=== PATIENT | female | born 1975 | race Caucasian/White ===

== ENCOUNTER 2020-03-09 15:42 | Emergency (ER) | payer OTHER ==
[~2020-03-09] VITALS: Ht 154.9 cm; Wt 95.7 kg
[2020-03-09] MEDS ORDERED: IBUPROFEN 600 MG TAB PO STA (16:05)
[2020-03-09] MEDS ORDERED: TRAMADOL HCL 50 MG TAB PO ONE (16:15)
--- NOTE | 2020-03-09 16:42 | Diagnostic Imaging Report ---
EXAMINATION: ELBOW RIGHT COMPLETE INDICATION: Elbow pain COMPARISON: None FINDINGS: No acute fracture or dislocation. Alignment is anatomic. No elbow joint effusion. Soft tissues appear unremarkable. IMPRESSION: No acute osseous injury. Signed by: Jered Nguyen MD on 03/09/2020 4:39 PM
[2020-03-09 17:43] VITALS: BP 127/88
--- NOTE | 2020-03-09 17:44 | Emergency Department Note ---
History of Present Illnes History of Present Illness Chief Complaint: General Medicine Complaints History of Present Illness This is a 44 year old female PATIENT IN FROM HOME WITH COMPLAINTS OF RIGHT ARM/ELBOW PAIN STARTING THIS MORNING; STATES SHE IS HAVING A HARD TIME GRIPPING THINGS WITH HER RIGHT HAND. RATES PAIN 04/16. 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 Any updates have been documented here. Past Medical History Recent Fever: No Clinical Suspicion of Infectio: No New/Unexplained Change in Ment: No Past Medical History: None Past Surgical History: Appendectomy, Tubal Ligation, Other Surgery: RIGHT ARM SURGERY/ TENDON REPAIR Social History Smoking Cessation: Never Smoker Counseling Performed: No Alcohol Use: Occasional Any Illegal Drug Use: No TB Exposure/Symptoms: No Physically hurt or threatened: No Family History Family history of heart diseas: No Other Last Tetanus: UTD Any Pre-Existing Lines (PICC,: No Is patient up to date on immun: Yes Last Flu: UTD Last Pneumovax: NA Review of Systems Review of Systems Constitutional: no symptoms EENTM: no symptoms Cardiovascular: no symptoms Respiratory: no symptoms Gastrointestinal: no symptoms Genitourinary: no symptoms Musculoskeletal: as per HPI Neurological: no symptoms Psychological: no symptoms Endocrine: no symptoms Hematological/Lymphatic: no symptoms Review of other systems All other systems reviewed and negative. Physical Exam Related Data Allergies: Coded Allergies: No Known Allergies (Unverified , 03/09/20) Triage Vital Signs Vital Signs Date Time Temp Pulse Resp B/P (MAP) Pulse Ox O2 Delivery O2 Flow Rate FiO2 03/09/20 15:57 98.9 89 18 148/97 96 Physical Exam CONSTITUTIONAL Constitutional: well-developed, well-nourished HENT HENT: normocephalic, atraumatic, oropharynx clear/moist, nose normal HENT L/R: left ext ear normal, right ext ear normal EYES Eyes: PERRL, conjunctivae normal NECK Neck: ROM normal PULMONARY Pulmonary: effort normal, breath sounds normal CARDIOVASCULAR Cardiovascular: regular rhythm, heart sounds normal, capillary refill normal, normal rate GASTROINTESTINAL Abdominal: soft, nontender, bowel sounds normal GENITOURINARY Genitourinary: exam deferred SKIN Skin: warm, dry MUSCULOSKELETAL Musculoskeletal: ROM normal, other (TENDERNESS OVER RIGHT OLECRONON EVEN TO LIGHT TOUCH) NEUROLOGICAL Neurological: alert, oriented x 3, no gross motor or sensory deficits; weakness PSYCHOLOGICAL Psychological: mood/affect normal, judgement normal Results Imaging Imaging results reviewed: Yes Impressions EXAMINATION: ELBOW RIGHT COMPLETE INDICATION: Elbow pain COMPARISON: None FINDINGS: No acute fracture or dislocation. Alignment is anatomic. No elbow joint effusion. Soft tissues appear unremarkable. IMPRESSION: No acute osseous injury. Signed by: Jered Nguyen MD on 03/09/2020 4:39 PM Critical Care Time Subsequent provider I assumed direction of critical care for this patient from another provider of my specialty. Assessment & Plan Assessment & Plan Final Impression: (1) OLECRANON BURSITIS, UNSPECIFIED ELBOW Assessment & Plan DC WITH BACTRIM DS BID X 10 DAYS, ICE, ELEVATION, REST, F/U WITH PCP AND ORTHO, TYL #3 (#15), OTC IBUPROFEN UD Depart Disposition: HOME, SELF-CARE Last Vital Signs Date Time Temp Pulse Resp B/P (MAP) Pulse Ox O2 Delivery O2 Flow Rate FiO2 03/09/20 15:57 98.9 89 18 148/97 96 Medications in the ED Ibuprofen 600 mg ONCE STAT PO Last administered on 03/09/20at 16:42; Admin Dose 600 MG; Start 03/09/20 at 16:05; Stop 03/09/20 at 16:17; Status DC Tramadol HCl 50 mg ONCE ONCE PO Last administered on 03/09/20at 16:42; Admin Dose 50 MG; Start 03/09/20 at 16:15; Stop 03/09/20 at 16:17; Status DC REJI DAMON MD Mar 09, 2020 17:44
== END 2020-03-09 17:42 | disposition home or self-care (01) ==
LOC: ER 15:42
DX: M25.521 Pain in right elbow (principal); M70.21 Olecranon bursitis, right elbow
CPT/HCPCS: 99283